=== PATIENT | male | born 1935 | race Caucasian/White ===

== ENCOUNTER 2016-04-19 16:04 | Inpatient (IN) | payer OTHER ==
[2016-04-19] MEDS ORDERED: VITAMIN D PO SCH (17:00)
[2016-04-19 20:36] LABS: CALCIUM 9.3 mg/dL (8.8-10.2); POTASSIUM 5.3 mmol/L (3.5-5.1)
[2016-04-19] MEDS: NS 1,000 ML IV SCH (21:25)
[2016-04-19] MEDS: PRECOSE PO SCH (21:25)
[2016-04-19] MEDS: HUMALOG SUBQ SCH (21:34)
--- NOTE | 2016-04-19 21:40 | HISTORY AND PHYSICAL ---
CHIEF COMPLAINT: Sore throat. Not eating well. Altered mental status. Elevated blood sugar 600 in my office. HISTORY OF PRESENT ILLNESS: He is a 80-year-old white gentleman, was seen in my office with the above symptoms. He has uncontrolled blood sugar A1c 10. He has a chronic kidney disease of hyperkalemia. He was not able to tolerate metformin. He is on glimepiride, acarbose without any help. In my office blood sugars not able to record and it showed 590. He has been hospitalized for IV fluids and control the diabetes. PAST MEDICAL HISTORY: Chronic renal failure, type 2 diabetes, GERD, hypertension, hypothyroidism, mild cognitive impairment, kyphosis of the spine, osteoarthritis, vitamin D deficiency. PAST SURGICAL HISTORY: Left hip surgery. MEDICATIONS: Glimepiride 4 mg p.o. b.i.d., Januvia 100 daily, Kayexalate as needed, lisinopril 40 daily, Lyrica 100 one tablet daily, Norvasc 5 mg daily, Prilosec 20 daily, Precose 100 twice daily, vitamin D 50,000 once a week. ALLERGIES: Basically reported to lisinopril due to hyperkalemia. SOCIAL HISTORY: , 2 daughters and 2 sons. 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 No smoking. Occasionally drinks alcohol. FAMILY HISTORY: Father of MVA at 83. Mom of sepsis. Brother had melanoma. REVIEW OF SYSTEMS: HEENT: Sore throat, sniffles, postnasal drainage. No headache, no dizziness and confusion. Neck: No goiter. No lymphadenopathy. Cardiopulmonary: No chest pain, shortness of breath, PND, orthopnea. GI: No nausea, vomiting, abdominal pain. : Polyuria, no hesitancy, frequency and no swelling of legs. No joint pains. No back pain. Neurologic: Nonfocal. HEALTH MAINTENANCE: Flu and pneumonia were declined. Last prostate exam was 06/2015, colonoscopy is declined. EXAMINATION: Vital signs: 5 feet 10, 148 pounds. Stable. HEENT: Atraumatic, normocephalic. Pupils equal, react to light. TMs are normal. Nose and throat within normal limits. Dry mucous membranes. Neck: Supple. No lymphadenopathy. No goiter. Chest: Bilateral air entry. No rales, no wheezing. Heart: Sounds are regular. Belly: Soft, nontender. Good bowel sounds. No masses palpable. Extremities: No peripheral edema, cyanosis, clubbing. Neuro exam: Nonfocal. INVESTIGATIONS: SMA 7, sodium 133, potassium 5.3, BUN 46, creatinine 2.1. ProBNP 3000. ASSESSMENT AND PLAN: 1. 80-year-old white gentleman admitted to the hospital with hyperglycemic dehydration associated with chronic kidney disease, mental confusion with mild cognitive impairment. Plan is IV fluids. Check the C-peptide. Will start with insulin Lantus 10 units at bedtime. 2. Hyperkalemia due to chronic kidney disease worsening with lisinopril discontinued, Kayexalate as needed. 3. Hypertension on Norvasc 5 mg daily. 4. Type 2 diabetes with chronic kidney disease on acarbose, Januvia, discontinue on glimepiride and check the C-peptide level. 5. Hypothyroidism on Synthroid. 6. Vitamin D deficiency on replacement therapy. 7. History of constipation on MiraLAX as needed. 8. Initiated vaccination protocol at his discretion and will follow up.
[2016-04-19] MEDS: LANTUS SUBQ SCH (23:40)
[2016-04-20 06:10] LABS: MANUAL DIFF NEEDED? NO
[2016-04-20 06:16] LABS: BASO% 0.8 % (0.0-0.8); EOS# 0.39 X1000 (0.0-0.7); EOS% 4.6 % (0.0-10.0); HEMOGLOBIN 10.7 g/dL (14.0-18.0); IMM GRAN# 0.05 X1000 (0.0-0.04); IMM GRAN% 0.6 % (0.0-0.5); LYMPH# 1.51 X1000 (1.2-3.4); LYMPH% 17.9 % (20.5-51.1); MCH 30.6 PG (27-31); MCHC 33.4 g/dL (33-37); MCV 91.4 FL (81-99); MONO# 0.79 X1000 (0.11-0.59); MONO% 9.4 % (1.7-9.3); MPV 9.8 FL (7.4-10.4); NEUT% 66.7 % (42.2-75.2); PLT 363 X1000 (130-400)
[2016-04-20 06:36] LABS: HEMOGLOBIN A1C 9.7 % (4.8-6.0)
[2016-04-20] MEDS: PRILOSEC PO SCH (06:48)
[2016-04-20] MEDS: SYNTHROID PO SCH (06:48)
[2016-04-20] MEDS: HUMALOG SUBQ SCH ×4 (06:49→21:19)
[2016-04-20 06:54] LABS: ALBUMIN 2.7 g/dL (3.5-5.0); CALCIUM 8.6 mg/dL (8.8-10.2); MAGNESIUM 1.6 mg/dL (1.5-2.7); POTASSIUM 5.2 mmol/L (3.5-5.1); TOTAL BILIRUBIN 0.25 mg/dL (0.20-1.00); TOTAL PROTEIN 6.1 g/dL (6.3-8.3)
[2016-04-20] MEDS: JANUVIA PO SCH (08:21)
[2016-04-20] MEDS: MIRALAX PO SCH (08:21)
[2016-04-20] MEDS: NORVASC PO SCH (08:21)
[2016-04-20] MEDS: VITAMIN B-12 PO SCH (08:21)
[2016-04-20] MEDS: PRECOSE PO SCH ×3 (08:21→16:54)
[2016-04-20] MEDS: NS 1,000 ML IV SCH ×3 (10:36→23:51)
[2016-04-20] MEDS: LANTUS SUBQ SCH (21:19)
[2016-04-21] MEDS: SYNTHROID PO SCH (06:42)
[2016-04-21] MEDS: HUMALOG SUBQ SCH ×4 (06:42→20:41)
[2016-04-21] MEDS: PRILOSEC PO SCH (06:42)
[2016-04-21] MEDS: NS 1,000 ML IV SCH (06:57)
[2016-04-21] MEDS: JANUVIA PO SCH (08:00)
[2016-04-21] MEDS: MIRALAX PO SCH (08:01)
[2016-04-21] MEDS: NORVASC PO SCH (08:01)
[2016-04-21] MEDS: PRECOSE PO SCH ×3 (08:01→16:46)
[2016-04-21] MEDS: VITAMIN B-12 PO SCH (08:01)
[2016-04-21] MEDS: LANTUS SUBQ SCH ×3 (09:00→20:43)
[2016-04-21] MEDS ORDERED: INSULIN PEN NEEDLES ONE (16:42)
[2016-04-22 06:43] LABS: CALCIUM 8.6 mg/dL (8.8-10.2); POTASSIUM 5.1 mmol/L (3.5-5.1)
[2016-04-22] MEDS: SYNTHROID PO SCH (06:59)
[2016-04-22] MEDS: HUMALOG SUBQ SCH (06:59)
[2016-04-22] MEDS: PRILOSEC PO SCH (06:59)
[2016-04-22 07:40] VITALS: BP 128/69
[2016-04-22] MEDS: PRECOSE PO SCH (08:29)
[2016-04-22] MEDS: NORVASC PO SCH (08:30)
[2016-04-22] MEDS: VITAMIN B-12 PO SCH (08:30)
[2016-04-22] MEDS: JANUVIA PO SCH (08:30)
[2016-04-22] MEDS: MIRALAX PO SCH (08:33)
--- NOTE | 2016-04-22 22:13 | DISCHARGE SUMMARY ---
ADMISSION DATE: 04/19/2016 DISCHARGE DATE: 04/22/2016 DISCHARGING DIAGNOSIS: Uncontrolled diabetes with hyperglycemic dehydration, hemoglobin A1c 9.6. SECONDARY DIAGNOSES: 1. Chronic kidney disease. 2. Hyperkalemia due to JONATHAN inhibitors. 3. Acid reflux disease. 4. Hypertension. 5. Hypothyroidism. 6. Mild cognitive impairment. 7. Kyphosis of thoracic spine. 8. Osteoarthritis. 9. Vitamin D deficiency. BRIEF HISTORY: Please see the H and P that was done on 04/19/2016. In brief, he is a 80-year-old white gentleman who was admitted to the hospital with a sore throat, URI symptoms, altered mental status, elevated blood sugar of 590. He has been taking glimepiride, Januvia and Precose. He was not able to take metformin because of chronic kidney disease. He was not able to tolerate JONATHAN inhibitors due to hyperkalemia. HOSPITAL COURSE: C-peptide was 3.0. At this point he needs some basal insulin. He was started on IV fluids. Followup hydration blood sugars running 200. I started him on basal insulin Lantus 10 units and slowly titrated to 15 units at bedtime. I discontinued the glimepiride due to chronic kidney disease that will predispose to severe hypoglycemia in the future. The patient was advised to continue with diet and walking. LABORATORIES: CBC: White cell count 8.4, hematocrit 32, platelets 363,000. SMA 7. Sodium 136, potassium 5.1, BUN 22, creatinine 1.8, glucose 195. C-peptide 3.1, liver function tests were normal. Chest x-ray was stable. Cardiac enzymes were negative. Hemoglobin A1c 9.4. DISCHARGE INSTRUCTIONS: 1. Prilosec 20 mg daily. 2. Januvia 100 daily. 3. Cyanocobalamin/folic acid 1 tablet daily. 4. Vitamin D 50,000 once a week. 5. Synthroid 88 mcg daily. 6. Amlodipine 5 mg daily. 7. MiraLAX as needed. 8. Lyrica 100 mg p.o. daily. 9. Insulin Lantus 15 units at bedtime. 10. Mycelex troches for thrush q.6h for 10 days. 11. Follow up in my office next week for maintenance of blood sugars. As I said he cannot tolerate JONATHAN inhibitors or ARBs due to hyperkalemia. 12. Follow up in my office next week. MTDD
== END 2016-04-22 10:24 | disposition home or self-care (01) | DRG 639 ==
LOC: DIRADM 16:04 → 4N 18:07
PROVIDERS: ADMIT Internal Medicine; ATTEND Internal Medicine
DX: E11.65 Type 2 diabetes mellitus with hyperglycemia (principal); E87.5 Hyperkalemia; E11.22 Type 2 diabetes mellitus with diabetic chronic kidney disease; E86.0 Dehydration; I12.9 Hypertensive chronic kidney disease with stage 1 through stage 4 chronic kidney disease, or unspecified chronic kidney disease; N18.9 Chronic kidney disease, unspecified; K21.9 Gastro-esophageal reflux disease without esophagitis; E03.9 Hypothyroidism, unspecified; M40.204 Unspecified kyphosis, thoracic region; M19.90 Unspecified osteoarthritis, unspecified site; E55.9 Vitamin D deficiency, unspecified; G31.84 Mild cognitive impairment of uncertain or unknown etiology; T46.4X5A Adverse effect of angiotensin-converting-enzyme inhibitors, initial encounter; K59.00 Constipation, unspecified; Z79.899 Other long term (current) drug therapy; Z79.84 Long term (current) use of oral hypoglycemic drugs; Z80.8 Family history of malignant neoplasm of other organs or systems
CPT/HCPCS: 80048; 80053; 82948; 83036; 83735; 83880; 84100; 84443; 84484; 84681; 85025; J1815; J7030